=== PATIENT | male | born 2000 | race Hispanic/Latino ===

== ENCOUNTER 2019-02-02 17:24 | Inpatient (IN) | payer OTHER ==
[2019-02-02 17:25] VITALS: BMI 24.4
[2019-02-02 17:26] VITALS: RESP 18
--- NOTE | 2019-02-02 18:18 | ED PDOC ---
HPI: Psych/Substance Abuse Time Seen by Provider: 02/02/19 17:40 Chief Complaint (Nursing): Psychiatric Evaluation Chief Complaint (Provider): Psychiatric Evaluation History Per: Patient History/Exam Limitations: no limitations Onset/Duration Of Symptoms: Hrs Current Symptoms Are (Timing): Still Present Suicide/Self Injury Attempted (Context): Other (cut thigh) Additional Complaint(s): 18 y/o male reports that earlier today he went on Snapchat and saw his friends hanging out and felt "socially excluded" by them causing it to have angered and upset him. Patient started throwing objects around in his dorm room, punched a wall and cut his left thigh with scissors. Patient's RA lives next door and heard the commotion and called 911. Patient verbalized suicidal thoughts to his roommate. Patient has a history of previous suicidal attempts. Patient notes he sees a therapist but does not take any medications. Patient further reports he does not want his parents to know he is in the ER. Otherwise, patient denies homicidal ideation, hallucinations and extremity pain. PMD: no provider Past Medical History Reviewed: Historical Data, Nursing Documentation, Vital Signs Vital Signs: Last Vital Signs Temp 97.6 F 02/02/19 17:26 Pulse 80 02/02/19 17:26 Resp 18 02/02/19 17:26 BP 141/89 02/02/19 17:26 Pulse Ox 100 02/02/19 17:26 - Medical History PMH: No Chronic Diseases - Surgical History Surgical History: Tonsillectomy (13 years old) - Family History Family History: States: Unknown Family Hx - Living Arrangements Living Arrangements: Other (at [facility]) - Home Medications Home Medications: Ambulatory Orders Medication Instructions Recorded No Known Home Med 02/02/19 - Allergies Allergies/Adverse Reactions: Allergies Allergy/AdvReac Type Severity Reaction Status Date / Time No Known Allergies Allergy Verified 02/02/19 17:25 Review of Systems ROS Statement: Except As Marked, All Systems Reviewed And Found Negative Skin: Positive for: Other (cut to the left thigh) Psych: Positive for: Suicidal ideation Physical Exam - Reviewed Nursing Documentation Reviewed: Yes Vital Signs Reviewed: Yes - Physical Exam Appears: Positive for: No Acute Distress Head Exam: Positive for: ATRAUMATIC, NORMOCEPHALIC Skin: Positive for: Normal Color, Warm, Dry Eye Exam: Positive for: Normal appearance, EOMI, PERRL Neck: Positive for: Normal, Painless ROM, Supple Cardiovascular/Chest: Positive for: Regular Rate, Rhythm. Negative for: Murmur Respiratory: Positive for: Normal Breath Sounds. Negative for: Respiratory Distress Gastrointestinal/Abdominal: Positive for: Normal Exam, Soft. Negative for: Tenderness Extremity: Positive for: Normal ROM (Full ROM actively to all fingers), Other (Superficial abrasian noted to the right second digit at the DIP joint on the dorsal surface. Linear, very superficial abrasian on the anterior left thigh additionally noted. No bleeding to the right hand. ). Negative for: Tenderness Neurological/Psych: Positive for: Mood/Affect (calm and cooperative but seems reserved) - Laboratory Results Result Diagrams: 02/02/19 19:30 02/02/19 19:30 - ECG O2 Sat by Pulse Oximetry: 100 (RA) Pulse Ox Interpretation: Normal Medical Decision Making Medical Decision Making: Time: 1739 Plan: -- Urine Drug Screen -- Crisis Evaluation -- 1:1 Observation Time: 1919 Plan: -- Alcohol Serum -- CMP -- CBC with Differentials -- Urinalysis Time: 1929 -- Patient evaluated by general foundry worker who discussed case with Dr. Rowe. Dr Rowe is requesting the patient to be admitted under their service. Labs demonstrate no clinically significant abnormalities. Patient is medically stable for psychiatric admission. ----- Scribe Attestation: Documented by Joni Richardson, acting as a scribe Joe Becerril PA-C. Provider Scribe Attestation: All medical record entries made by the Scribe were at my direction and personally dictated by me. I have reviewed the chart and agree that the record accurately reflects my personal performance of the history, physical exam, medical decision making, and the department course for this patient. I have also personally directed, reviewed, and agree with the discharge instructions and disposition. Disposition - Clinical Impression Clinical Impression: Depression - Patient ED Disposition Is Patient to be Admitted: Yes - Disposition Disposition Time: 19:30 Condition: STABLE
[2019-02-02 19:04] LABS: BARBITURATES, UR NEGATIVE (NEGATIVE); BENZODIAZEPINES, UR NEGATIVE (NEGATIVE); OPIATES, UR NEGATIVE (NEGATIVE); PHENCYCLIDINE, UR NEGATIVE (NEGATIVE)
[2019-02-02 19:51] LABS: BASO % 0.4 % (0.0-2.0); EOS # 0.1 K/uL (0.0-0.7); HEMOGLOBIN 15.5 g/dL (12.0-18.0); MEAN CELL VOLUME 91.2 fl (80.0-94.0); MEAN CORPUSCULAR HEMOGLOBIN 31.1 pg (27.0-31.0); MEAN CORPUSCULAR HGB CONC 34.1 g/dL (33.0-37.0); MEAN PLATELET VOLUME 9.1 fl (7.2-11.7); MONO # 0.5 K/uL (0.0-0.8); MONO % 6.1 % (0.0-10.0); NEUT # 5.6 K/uL (1.8-7.0); NEUT % 68.5 % (50.0-75.0); NRBC % 0.2 % (0.0-0.0); RED CELL DISTRIBUTION WIDTH 12.7 % (11.5-14.5); WHITE BLOOD COUNT 8.2 K/uL (4.8-10.8)
[2019-02-02 19:54] LABS: URINE BILIRUBIN NEGATIVE (NEGATIVE); URINE BLOOD NEGATIVE (NEGATIVE); URINE CLARITY CLOUDY (Clear); URINE GLUCOSE (UA) NEG (NEGATIVE); URINE LEUKOCYTE ESTERASE NEG Leu/uL (Negative); URINE PROTEIN NEGATIVE (NEGATIVE); URINE UROBILINOGEN 0.2-1.0 mg/dL (0.2-1.0)
[2019-02-02 20:01] LABS: URINE COLOR YELLOW (YELLOW)
[2019-02-02 20:02] LABS: ALB/GLOB RATIO 1.6 (1.0-2.1); ALBUMIN 4.8 g/dL (3.5-5.0); ALT/SGPT 29 U/L (21-72); AST/SGOT 30 U/L (17-59); BLOOD UREA NITROGEN 16 mg/dl (9-20); CALCIUM 10.1 mg/dL (8.4-10.2); GFR NON-AFRICAN AMERICAN > 60
[2019-02-02] MEDS ORDERED: DiphenhydrAMINE 50 mg/ml Inj IM PRN (22:45)
[2019-02-02] MEDS ORDERED: Alum-Mag Hydrox-Simethicone Susp (30 mL) PO PRN (22:45)
[2019-02-02] MEDS ORDERED: Magnesium Hydroxide Susp 30 ml UD PO PRN (22:45)
[2019-02-02 23:58] VITALS: O2SAT 100
--- NOTE | 2019-02-03 01:08 | PCM.BM ---
<Susana Hughes - Last Filed: 02/03/19 01:06> Treatment Plan Problems - Problems identified on initial assessmt Self Harm Date Initiated: 02/03/19 Time Initiated: 01:06 Assessment reference: NA Status: Active Anxiety Date Initiated: 02/03/19 Time Initiated: 01:06 Assessment reference: NA Status: Active Medication nonadherence Date Initiated: 02/03/19 Time Initiated: 01:07 Assessment reference: NA Status: Active Hopelessness/Helplessness Date Initiated: 02/03/19 Time Initiated: 01:07 Assessment reference: NA Status: Active Altered Sleep Patterns Date Initiated: 02/03/19 Time Initiated: 01:08 Assessment reference: NA Status: Active Treatment assets and liabiliti Patient Assests: cooperative, self-reliant, ADL independent, physically healthy, good support system, negotiates basic needs Patient Liabilities: other (history of bullying) - Milieu Protocol Maintain good personal hygiene: daily Encourage regular showers, every shift Remind patient to perform daily oral care, every shift Assist patient to perform ADL's Conduct patient checks and document Observation sheet: Q15 minutes Maintain personal safety: every shift Educate patient to report safety concerns to staff, every shift Monitor environment for contraband/sharps Medication safety: Monitor for expected outcome, potential side effects: every shift, Assess barriers to learning: every shift, Assess readiness for medication education: every shift <BarbaraMireille - Last Filed: 02/04/19 16:02> Treatment assets and liabiliti Patient Assests: adapts well, cooperative, educated (Pt. currently a freshmen with [employer]). ), self-reliant, ADL independent, physically healthy, good support system (Pt. reports having a loving and sup portive relationship with both parents.), cognitively intact Patient Liabilities: live alone (Pt. reports currently residing on campus ([employer])), relationship conflicts (Pt. reports difficulties making friends secondary to social anxiety. ), substance abuse (Pt. reports hx of marijuana use (infrequent) and having tried LSD 2-3 weeks ago.), other Family Contact Family involvement: Family/SO is involved Family contact: Patient agrees to contact, Family has been contacted by patient, Telephone contact initiated by staff Family contact name: Marley (mother) ([phone]) Family contact comment: Neurology Specialist placed call to pts mother (Marley [phone]) to discuss pts progress on 3NP, possible discharge of 02/05, and aftercare. Neurology Specialist provided clinical updates regarding pts current presentation on 3NP. Neurology Specialist emphasized importance of adherence with outpatient therapy to promote self-awareness and self-esteem, develop coping skills, and improve impulse control and insight. Pts mother reported that family is happy with the therapist is currently connected to but would prefer pt. to be connected to a therapist closer to campus. Neurology Specialist explained that pt. has expressed some concerns regarding progress made with current therapist and has also expressed wanting a local therapist. Neurology Specialist notified pts family that several local agencies/private therapists have been contacted to initiate referral. Pts mother reported that pt. will be able to go to an [id number] clinician secondary to pts family having reached their deductible due to services needed by pts younger brother. Pts family agreeable to having pt. return to outpatient psychaitrist in [facility] if new therapist does not have a psychiatrist on staff. Neurology Specialist explained that a meeting will have to be scheduled with [facility] staff prior to pt. being allowed to return to school. Pts mother expressed understanding of the above. Neurology Specialist to contact pts mother on 02/05 to finalize aftercare, notify family of requests made by [facility], and scheduled pick-up. - Goals for Treatment Patient goals for treatment: Patient to continue stabilization on 3NP through medication management and group/supportive therapy to address sxs of anxiety as exhibited by impulsivity, poor frustration tolerance, restlessness, and social withdrawal and eliminate SI/urge to self-injure. Patient to be encouraged to attend groups regularly to promote self-awareness, sobriety, and improve insight, compliance, coping skills and self-esteem. Patient to be provided with referral for appropriate level of aftercare to reduce risk of future hospitalizations and ensure safety in the community. Pt. identified wanting to "not get so angry" and "stop feeling so left out" as primary tx goals. Discharge/Continuing Care - Education Needs Education Needs: Family Medication, Family Diagnosis/Disease Process, Family Community resources, Family Aftercare Safety Plan, Patient Medication, Patient Diagnosis/Disease Process, Patient Coping Skills, Patient Anger Management skills, Patient Community resources, Patient Aftercare Safety Plan - Discharge Discharge Criteria: Tolerates medication w/o severe side effects, Free of Suicidal thoughts, Free of agitation, Normal sleep pattern, Ability to care for self Discharge to:: Other ([facility]) - Treatment Team Participation Patient/Family/SO Statement: 02/04/19 16:06 LATE NOTE: Pt. attended tx team on 02/03 to discuss precursors to hospitalization, progress on 3NP, and tx goals. Pt. explained having seen peers hanging out without him (via SnapChat) and becoming "irrationally angry". Pt. expressed remorse towards suicidal threats upon admission, describing threat as attention seeking. Pt. denied intentions to end life. Pt. presented as anxious as exhibited by restlessness, poor eye contact, and poor focus. Pt. discharge focused and requesting to be discharged, expressing concerns regarding missed classes. Pt. appropriately tearful. Emotional support and validation provided. Psychoeducation regarding importance of proper stabilization to ensure safety in the community and reduce risk of future hospitalizations provided. Pt. receptive to feedback. Pt. provided consent for family and [facility]. Importance of participation in unit milieu emphasized. Pt. agreeable. Pt. denied SI/HI and was able to contract for safety on 3NP. Discussed with Family/SO: Yes Was Patient/Family/SO present at Treatment Team Meeting: Yes <Simone Kapoor - Last Filed: 02/05/19 12:00> - Diagnosis (1) Depression Status: Acute Interventions: 02/05/19 11:59 pharmacotherapy, psychotherapy
--- NOTE | 2019-02-03 15:25 | PCM.PSYCH ---
Initial Psychiatric Evaluation - Initial Psychiatric Evaluation Type of Admission: Voluntary Legal Status: Capacity Chief Complaint (in patient's own words): I felt rejected and left out History of Present Illness and Precipitating Events: pt is a 18 ys old male with previous diagnosis of depression OCD and ADHD, brought to Er by EMS after expressing suicidal ideation pt has not been compliant with medications or follow up, has been feeling increasingly depressed and irritable due to poor social support at school also for missing some classes, reported increased anxiety and increased compulsive behavior including repeated asking for reassurance from his friends, pt also started cutting himself superficially in the thigh, on day of evaluation he came to know that his friends are meeting without him, he felt abandoned and rejected, started to have anger episode throwing things around and expressing thoughts of ending his life on the unit pt increasingly anxious irritable, poor eye contact depressed mood and tearfull affect, denied perceptual diturbances, reported using cannabis few weeks ago Current Medications: Active Medications Generic Name Dose Route Start Last Admin Trade Name Freq PRN Reason Stop Dose Admin Acetaminophen 650 mg 02/02/19 22:45 Tylenol 325mg Tab PO Q4 PRN Pain, moderate (4-7) Al Hydrox/Mg Hydrox/Simethicone 30 ml 02/02/19 22:45 Maalox Plus 30 Ml PO Q4 PRN Dyspepsia Aripiprazole 5 mg 02/04/19 09:00 Abilify PO DAILY LOLI Diphenhydramine HCl 50 mg 02/02/19 22:45 Benadryl IM Q6 PRN Extrapyramidal S/S Unable PO Diphenhydramine HCl 50 mg 02/02/19 22:45 Benadryl PO Q6 PRN Extrapyramidal Symptoms Diphenhydramine HCl 50 mg 02/02/19 22:51 02/02/19 23:29 Benadryl PO 50 mg HS PRN Administration Sleep Haloperidol 5 mg 02/02/19 22:45 Haldol PO Q4 PRN Agitation Haloperidol Lactate 5 mg 02/02/19 22:45 Haldol IM Q4 PRN Agitation, Unable to Take PO Lorazepam 2 mg 02/02/19 22:45 Ativan IM Q4 PRN Anxiety/Agitation,Unable PO Lorazepam 1 mg 02/02/19 22:45 Ativan PO Q8 PRN Anxiety/Agitation Magnesium Hydroxide 30 ml 02/02/19 22:45 Milk Of Magnesia PO HS PRN Constipation Past Psychiatric History - Past Psychiatric History Explanation of prior treatment: no hx of psychiatric hospitalization hx of being in psychiatric treatment since age 12 History of ETOH/Drug Use: denied Pertinent Medical Hx (Current Medical&Sleep Prob, Allergies): Allergies Allergy/AdvReac Type Severity Reaction Status Date / Time No Known Allergies Allergy Verified 02/02/19 17:25 No Known Home Med 02/02/19 Mental Status Examination - Personal Presentation Personal Presentation: Looks stated age - Affect Affect: Constricted, Depressed - Motor Activity Motor Activity: Psychomotor Agitation - Reliability in Providing Information Reliability in Providing Information: Fair - Speech Speech: Relevant - Mood Mood: Depressed, Anxious - Formal Thought Process Formal Thought Process: Circumstantial - Obsessions/Compulsions Compulsions: Yes - Cognitive Functions Orientation: Person, Place, Situation Sensorium: Alert - Risk Risk: Suicidal, Diminished functioning - Strength & Assets Inventory Strength & Assets Inventory: Education - Limitations Additional comments: non compliance DSM 5 DX - DSM 5 DSM 5 Diagnosis: major depression recurrent rule out bipolar OCD - Recommended/Plan of Treatment Treatment Recommendations and Plan of Treatment: START ABILIFY 2MG , INCREASE TO 5MG START LUXOX 50MG CBT GROUP AND SUPPORTIVE THERAPY INTERNAL MEDICINE CONSULT
--- NOTE | 2019-02-04 14:45 | PCM.PYCHPN ---
Psychiatric Progress Note - Psychiatric Progress Note Patient seen today, length of contact: pt evaluated discussed with team chart reviewed Patient Chief Complaint: I had the same feeling of being rejected as I was in high school Problems Identified/Issues Discussed: pt evaluated and treatment plan discussed with parents upon patient consent pt reported that he has suffered for OCD symptoms since he was about [age] years old, including constant request of reassurance from others, he also reported long history of other symptoms of anxiety including shy bladder, separation anxiety , social awkwardness and poor self esteem, continues to feel down and frustrated about being rejected by his friends, stated that this has been happening since middle school which made him frequently paranoid and suspicious discussed with pt increasing dose of luvox and abilify gradually, no reported side effects also discussed the need for intensive therapy on discharge pt denied current active thoughts of self harm on the unit Medical Problems: no hx of psychiatric hospitalization hx of being in psychiatric treatment since age 12 DSM 5 Symptoms Update: ocd generalized anxiety adjustment disorder acute with mixed anxiety and depression Medication Change: Yes (increase luvox) Medical Record Reviewed: Yes Mental Status Examination - Cognitive Function Orientation: Person, Place, Situation Attention: WNL Concentration: WNL Association: WNL Fund of Knowledge: [facility] Decription of patient's judgement and insights: partial insight and fair judgment - Mood Mood: Depressed, Anxious - Affect Affect: Constricted, Depressed - Speech Speech: Appropriate - Formal Thought Process Formal Thought Process: Paranoia, Circumstantial - Suicidal Ideation Suicidal Ideation: No - Homicidal Ideation Homicidal Ideation: No Goal/Treatment Plan - Goal/Treatment Plan Need for Continued Stay: Severe depression anxiety, Discharge may exacerbated symptoms Progress Toward Problem(s) and Goals/Treatment Plan: START ABILIFY 2MG , INCREASE TO 5MG INCREASE LUXOX 100MG CBT GROUP AND SUPPORTIVE THERAPY DEBT MANAGEMENT COUNSELOR TO ARRANGE FOR AFTER CARE
--- NOTE | 2019-02-04 21:07 | CARD ---
APPROVED REPORT Date of service: 02/04/2019 EKG Measurement Heart [id number] <Conclusion> Sinus bradycardia with sinus arrhythmia Early repolarization Otherwise normal ECG
[2019-02-05 09:48] VITALS: BP 126/82; PULSE 77; TEMP 98.1
--- NOTE | 2019-02-05 16:19 | PCM.PYCHDC ---
Mental Status Examination - Mental Status Examination Orientation: Person, Place, Situation Memory: Intact Mood: Neutral Affect: Broad Speech: Appropriate Attention: WNL Concentration: WNL Association: WNL Fund of Knowledge: WNL Formal Thought Process: No Impairment Description of patient's judgement and insight: partial insight and fair judgment Psychotic Thoughts and Behaviors: pt denied psychotic symptoms, non elicited Suicidal Ideation: No Current Homicidal Ideation?: No Discharge Summary - Discharge Note Reason for Hospitalization: pt is a 18 ys old male with previous diagnosis of depression OCD and ADHD, brought to Er by EMS after expressing suicidal ideation pt has not been compliant with medications or follow up, has been feeling increasingly depressed and irritable due to poor social support at school also for missing some classes, reported increased anxiety and increased compulsive behavior including repeated asking for reassurance from his friends, pt also started cutting himself superficially in the thigh, on day of evaluation he came to know that his friends are meeting without him, he felt abandoned and rejected, started to have anger episode throwing things around and expressing thoughts of ending his life on the unit pt increasingly anxious irritable, poor eye contact depressed mood and tearfull affect, denied perceptual diturbances, reported using cannabis few weeks ago Consultations:: List each consultation separately and include: 1. Reason for request. 2. Findings. 3. Follow-up Summary of Hospital Course include:: 1. Description of specific treatment plan utilized for patients during their course of treatmen. 2. Summarize the time- course for resolution of acute symptoms and/or regressed behaviors. 3. Describe issues identified and worked on during hospitalization. 4. Describe medication utilized. 5. Describe medical problems identified and treated. 6. Reassessment of suicide risk Summary of Hospital Course: pt on admission presented with depressed and anxious mood and affect, poor i mpulse control and REPORTED HAVING RITUALS AND OBSESSIONS SINCE AGE 7 PT WAS STARTED ON ABILIFY FOR DEPRESSION AND IMPULSE CONTROL, INCREASED TO 5MG STARTED ON LUVOX FOR DEPRESSION AND OCD INCREASED TO 100MG PT WAS COMPLIANT WITH TREATMENT ATTENDED GROUPS, NO REPORTED SIDE EFFECTS OF MEDICATIONS TREATMENT PLAN DISCUSSED WITH PARENTS AND PRIVATE PSYCHIATRIST UPON PATIENT CONSENT ON DISCHARGE PT MENTAL STATUS WAS STABLE DENIED ANY CURRENT SUICIDAL O HOMICIDAL IDEATION DENIED PERCEPTUAL DISTURBANCES - Diagnosis (1) Depression Status: Acute - Final Diagnosis (DSM 5) Condition upon Discharge: STABLE DSM 5: adjustment disorder acute with mixed depression and anxiety OCD Disposition: HOME/ ROUTINE Follow-up Treatment Plan: START ABILIFY 2MG , INCREASE TO 5MG INCREASE LUXOX 100MG CBT GROUP AND SUPPORTIVE THERAPY CLOSER ON TO ARRANGE FOR AFTER CARE Prescriptions/Medication Reconciliation: ARIPiprazole [Abilify] 5 mg PO DAILY 30 Days #30 tab fluvoxaMINE [Luvox] 100 mg PO HS 30 Days #30 tab - Antipsychotic Medications Pt discharged on 2 or more routine antipsychotic medications: No
== END 2019-02-05 14:47 | disposition home or self-care (01) | DRG 882 ==
LOC: H.ER 17:24 → H.ERHOLD 20:19 → H.PSYCH 22:35
PROVIDERS: ADMIT Psychiatry & Neurology Psychiatry; ATTEND Psychiatry & Neurology Psychiatry
PROC: GZHZZZZ Group Psychotherapy (ICD-10-PCS; principal; 2019-02-02)
PROC: GZ58ZZZ Individual Psychotherapy, Cognitive-Behavioral (ICD-10-PCS; 2019-02-02)
PROC: GZ56ZZZ Individual Psychotherapy, Supportive (ICD-10-PCS; 2019-02-02)
DX: F43.23 Adjustment disorder with mixed anxiety and depressed mood (principal); R45.851 Suicidal ideations; F42.9 Obsessive-compulsive disorder, unspecified; Z91.14 Patient's other noncompliance with medication regimen; Z91.19 Patient's noncompliance with other medical treatment and regimen; S71.112A Laceration without foreign body, left thigh, initial encounter; X78.8XXA Intentional self-harm by other sharp object, initial encounter; Y92.214 College as the place of occurrence of the external cause